=== PATIENT | female | born 1975 | race Caucasian/White ===

== ENCOUNTER → 2017-01-09 | Outpatient (CLI) | payer OTHER ==
--- NOTE | 2017-01-11 09:51 | RADIOLOGY REPORT PS360 ---
MRI-UP EXT ANY JNT W/O-LT HISTORY: Left shoulder dislocation, Left shoulder pain extending down left arm with limited range of motion SHOULDER DISLOCATION ORDERING PHYSICIAN: HOANG MIRANDA CRNA PATIENT AGE: 41 years COMPARISON: Radiograph of 01/03/2017 TECHNIQUE: Standard multiplanar multiecho sequences are performed without contrast. FINDINGS: Slight increased T1 and T2 signal involves the supraspinatus tendon consistent with tendinopathy/tendinosis. A definite rotator cuff tendon tear is not identified. The subscapularis and teres minor tendons are intact. There is a small shoulder joint effusion. There is heterogeneous increased T2 signal involving the neck of the humerus as well as the proximal shaft of the humerus at the diaphyseal metaphyseal junction consistent with bone bruise. There is a Hill-Sachs impaction fracture involving the posterior aspect of the humeral head with mild impaction of the posterior lateral aspect of the humeral head. The anterior inferior aspect of the glenoid labrum is not well delineated and could be torn/Bankart lesion. This may be better evaluated with MR arthrography if clinically warranted. The bicipital tendon is in place. IMPRESSION: 1. Hill-Sachs injury involving the posterior lateral glenoid labrum with bone bruise of the humeral head and neck. 2. Possible Bankart lesion of the anterior inferior glenoid labrum. This may be better evaluated with MR arthrography if clinically warranted 3. Tendinopathy/tendinosis of the supraspinatus tendon. A definite tendon tear is not identified. 4. Small shoulder joint effusion
== END ==
LOC: RAD 13:40
DX: S43.005A Unspecified dislocation of left shoulder joint, initial encounter (principal)